=== PATIENT | male | born 1990 | race African-American/Black ===

== ENCOUNTER 2016-12-14 18:27 | Emergency (ER) | payer OTHER ==
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
[2016-12-14] MEDS ORDERED: IBUPROFEN 800 MG TABLET PO ONE ×2 (19:48→20:08)
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
[2016-12-14 21:14] VITALS: BP 138/83
== END 2016-12-14 21:12 | disposition home or self-care (01) ==
LOC: ER 18:27
DX: S80.01XA Contusion of right knee, initial encounter (principal); S50.01XA Contusion of right elbow, initial encounter; M25.561 Pain in right knee; M25.521 Pain in right elbow; V49.50XA Passenger injured in collision with unspecified motor vehicles in traffic accident, initial encounter; J45.909 Unspecified asthma, uncomplicated; F17.210 Nicotine dependence, cigarettes, uncomplicated; Z71.6 Tobacco abuse counseling; Z88.2 Allergy status to sulfonamides
CPT/HCPCS: 99283